=== PATIENT | male | born 1950 | race Caucasian/White ===

== ENCOUNTER → 2017-11-29 | Outpatient (CLI) | payer OTHER, BC | LOC: RAD 08:20 | DX: J61 Pneumoconiosis due to asbestos and other mineral fibers (principal) ==

== ENCOUNTER → 2018-12-05 | Outpatient (CLI) | payer OTHER, BC | LOC: RAD 12:00 | DX: J84.9 Interstitial pulmonary disease, unspecified (principal); J98.4 Other disorders of lung ==

== ENCOUNTER → 2019-12-11 | Outpatient (CLI) | payer OTHER, BC | LOC: RAD 12:08 | PROVIDERS: ATTEND Internal Medicine | DX: J84.10 Pulmonary fibrosis, unspecified (principal); J98.4 Other disorders of lung ==

== ENCOUNTER → 2020-12-16 | Outpatient (CLI) | payer OTHER, BC | LOC: RAD 11:13 | PROVIDERS: ATTEND Internal Medicine | DX: J84.10 Pulmonary fibrosis, unspecified (principal); J44.9 Chronic obstructive pulmonary disease, unspecified ==